=== PATIENT | female | born 1960 | race Two or more races ===

== ENCOUNTER → 2017-11-12 13:56 | Outpatient (CLI) | payer OTHER ==
[~2017-11-12] VITALS: Ht 152.4 cm; Wt 96.6 kg
[~2017-11-12 13:56] MED LIST: ADVIL100 M1; PREVACID15 MG; PRILOSEC OTC20 MG; RELAFEN500 MG
== END | disposition home or self-care (01) ==
LOC: PPHC 13:56
DX: M94.0 Chondrocostal junction syndrome [Tietze] (principal)

== ENCOUNTER 2019-02-11 15:22 | Outpatient (CLI) | payer OTHER | END 2019-02-11 15:37 | disposition home or self-care (01) | LOC: LAB 15:22 | DX: J11.1 Influenza due to unidentified influenza virus with other respiratory manifestations (principal); J20.0 Acute bronchitis due to Mycoplasma pneumoniae ==

== ENCOUNTER 2019-05-25 07:29 | Outpatient (CLI) | payer OTHER | END 2019-05-25 07:46 | disposition home or self-care (01) | LOC: MAMO-SONO 07:29 | DX: N64.4 Mastodynia (principal); Z12.31 Encounter for screening mammogram for malignant neoplasm of breast ==

== ENCOUNTER → 2019-10-30 | Outpatient (CLI) | payer OTHER | END | disposition home or self-care (01) | LOC: RAD 13:57 | DX: M54.89 Other dorsalgia (principal) ==

== ENCOUNTER 2021-01-09 21:26 | Emergency (ER) | payer OTHER ==
[~2021-01-09] VITALS: Ht 160 cm; Wt 108.9 kg
[2021-01-09] MEDS ORDERED: CIPROFLOXACIN HC5 ML OPHT (21:39)
[2021-01-09] MEDS ORDERED: PRED FORTE5 ML OP (21:39)
[2021-01-09] MEDS ORDERED: KETOROLAC TROMET5 M1 OP (21:39)
[2021-01-09] MEDS ORDERED: ACETAMINOPHEN650 M2 PO (22:44)
[2021-01-09] MEDS ORDERED: ORPHENADRINE C100 MG PO (22:44)
== END 2021-01-09 22:59 | disposition home or self-care (01) ==
LOC: ER 21:26
DX: M54.5 Low back pain (principal); M62.830 Muscle spasm of back

== ENCOUNTER 2022-01-22 17:19 | Emergency (ER) | payer OTHER ==
[~2022-01-22] VITALS: Ht 160 cm; Wt 105.7 kg
[~2022-01-22 17:19] MED LIST changes: +ACETAMINOPHEN650 M2 PO; +CIPROFLOXACIN HC5 ML OPHT; +KETOROLAC TROMET5 M1 OP; +ORPHENADRINE C100 MG PO; +PRED FORTE5 ML OP
== END 2022-01-22 19:46 | disposition home or self-care (01) ==
LOC: ER 17:19
DX: M94.0 Chondrocostal junction syndrome [Tietze] (principal)

== ENCOUNTER 2022-05-14 07:00 | Emergency (ER) | payer OTHER ==
[~2022-05-14] VITALS: Ht 157.5 cm; Wt 103.9 kg
== END 2022-05-14 11:04 | disposition home or self-care (01) ==
LOC: ER 07:00
DX: K59.00 Constipation, unspecified (principal)

== ENCOUNTER 2022-10-28 12:37 | Emergency (ER) | payer OTHER ==
[~2022-10-28] VITALS: Ht 160 cm; Wt 106.6 kg
[2022-10-28] MEDS ORDERED: TERBINAFINE HC250 MG PO (15:46)
== END 2022-10-28 17:01 | disposition home or self-care (01) ==
LOC: ER 12:37
DX: B35.1 Tinea unguium (principal); M79.675 Pain in left toe(s)

== ENCOUNTER 2024-09-16 07:53 | Outpatient (CLI) | payer OTHER ==
[~2024-09-16 07:53] MED LIST changes: +TERBINAFINE HC250 MG PO
== END 2024-09-16 08:03 | disposition home or self-care (01) ==
LOC: SONOGRAMA 07:53
PROVIDERS: ATTEND Internal Medicine Cardiovascular Disease
DX: R31.21 Asymptomatic microscopic hematuria (principal); I10 Essential (primary) hypertension

== ENCOUNTER 2024-10-17 13:58 | Emergency (ER) | payer OTHER ==
[~2024-10-17] VITALS: Ht 157.5 cm; Wt 103.4 kg
[2024-10-17] MEDS ORDERED: NORVASC2.5 M1 PO (14:17)
[2024-10-17] MEDS ORDERED: LIPITOR40 M1 PO (14:17)
[2024-10-17] MEDS ORDERED: COZAAR25 MG PO (14:17)
[2024-10-17] MEDS ORDERED: KETOROLAC TROMETHAMINE 60 MG VIAL IM ONE (16:30)
== END 2024-10-17 18:22 ==
LOC: ER 14:00
DX: M79.622 Pain in left upper arm (principal); I10 Essential (primary) hypertension

== ENCOUNTER 2024-12-30 13:35 | Outpatient (CLI) | payer OTHER ==
[~2024-12-30 13:35] MED LIST changes: +COZAAR25 MG PO; +LIPITOR40 M1 PO; +NORVASC2.5 M1 PO
== END 2024-12-30 13:46 | disposition home or self-care (01) ==
LOC: RAD 13:35
PROVIDERS: ATTEND Physical Medicine & Rehabilitation
DX: M17.12 Unilateral primary osteoarthritis, left knee (principal)

== ENCOUNTER 2025-06-10 11:16 | Outpatient (CLI) | payer OTHER | END 2025-06-10 11:23 | disposition home or self-care (01) | LOC: RAD 11:16 | PROVIDERS: ATTEND Physical Medicine & Rehabilitation | DX: M16.11 Unilateral primary osteoarthritis, right hip (principal); M17.11 Unilateral primary osteoarthritis, right knee ==